=== PATIENT | female | born 1965 | race Two or more races ===

== ENCOUNTER 2024-07-20 04:51 | Emergency (ER) | payer BC, OTHER ==
[~2024-07-20] VITALS: Ht 170.2 cm; Wt 88.7 kg
[2024-07-20] MEDS: methylPREDNISolone SOD SUCC 125 MG/2 ML VL IM ONE (05:24)
[2024-07-20] MEDS: KETOROLAC TROMETH 60MG/2ML VIAL IM ONE (05:24)
[2024-07-20] MEDS ORDERED: METH4PAK PO (05:27)
[2024-07-20] MEDS ORDERED: IBUP-1456 PO (05:27)
--- NOTE | 2024-07-20 05:29 | ED.PDOC ---
Musculoskeletal HPI Comments 58-year-old female presents to ER with complaints of right shoulder pain x3 days. Patient reports that she started experiencing right shoulder pain three days ago after she was taking down her blinds to wash them that got worse when she woke up this morning. Denies any trauma/falls. She rates her current pain a 7/10 to right shoulder and notes she took Aleve for her pain with slight relief. Patient presents to ER ambulatory on arrival, with steady gait, in mild distress. Denies shortness of breath, skin changes, chest pain, numbness/tingling, neck pain or any further symptoms/complaints Chief Complaint: Upper Extremity Time Seen by MD: 05:05 Primary Care Provider: UNKNOWN Reviewed Notes: Nurses Notes, Medications, Allergies Allergies: Coded Allergies: NO KNOWN ALLERGIES (Unverified , 07/20/24) Home Meds Discontinued Scripts Ibuprofen (Ibuprofen) 800 Mg Tab, 1 TAB PO TID PRN, #30 TAB 0 Refills Prov:REMEDIOS AVILA 07/20/24 Methylprednisolone (Medrol Dosepak) 4 Mg Simon, 4 MG PO UD, #21 TAB 0 Refills UAD Prov:REMEDIOS AVILA 07/20/24 Information Source: Patient Mode of Arrival: Ambulatory Past Medical History PAST MEDICAL HISTORY: HTN Surgical History: Denies all surgeries Family History Family History: Unknown Social History Smoker: Non-Smoker Alcohol: Denies ETOH Use Drugs: Denies Drug Use Lives In: Home Constitutional: denies: chills, diaphoresis, fatigue, fever, malaise, sweats, weakness, others EENTM: denies: blurred vision, double vision, ear bleeding, ear discharge, ear drainage, ear pain, ear ringing, eye pain, eye redness, hearing loss, mouth pain, mouth swelling, nasal discharge, nose bleeding, nose congestion, nose pain , photophobia, tearing, throat pain, throat swelling, voice changes, others Respiratory: denies: cough, hemoptysis, orthopnea, SOB at rest, shortness of breath, SOB with excertion, stridor, wheezing, others Cardiovascular: denies: chest pain, dizzy spells, diaphoresis, Dyspnea on exertion, edema, irregular heart beat, left arm pain, lightheadedness, palpitations, PND, syncope, others Gastrointestinal: denies: abdomen distended, abdominal pain, blood streaked bowels, constipated, diarrhea, dysphagia, difficulty swallowing, hematemesis, melena, nausea, poor appetite, poor fluid intake, rectal bleeding, rectal pain, vomiting, others Genitourinary: denies: abnormal vagina bleeding, burning, dyspareunia, dysuria, flank pain, frequency, hematuria, incontinence, pain, , vagina discharge, urgency, others Neurological: denies: dizziness, fainting, headache, left sided numbness, left sided weakness, numbness, paresthesia, pre-existing deficit, right sided numbness, right sided weakness, seizure, speech problems, tingling, tremors, weakness, others Musculoskeletal: reports: others (As stated in HPI) Integumetry: denies: bruises, change in color, change in hair/nails, dryness, laceration, lesions, lumps, rash, wounds, others Allergic/Immunocompromised: denies: Difficulty Healing, Frequent Infections, Hives, Itching, others Hematologic/Lymphatic: denies: anemia, blood clots, easy bleeding, easy bruising, swollen glands, others Endocrine: denies: excessive hunger, excessive sweating, excessive thirst, excessive urination, flushing, intolerance to cold, intolerance to heat, unexplained weight gain, unexplained weight loss, others Psychiatric: denies: anxiety, bipolar disorder, depression, hopeless, panic disorder, schizophrenia, sleepless, suicidal, others Physical Exam General Appearance: Mild Distress (due to right shoulder pain), Obese HEENT: PERRL/EOMI Neck: Full Range of Motion, Non-Tender, Normal Respiratory: Chest Non-Tender, Lungs Clear, No Accessory Muscle Use, No Respiratory Distress, Normal Breath Sounds Cardiovascular: No Murmur, No Gallop, Regular Rate/Rhythm Breast Exam: Deferred Gastrointestinal: NOT DONE Genitalia: Deferred Pelvic: Deferred Rectal: Deferred Extremities: Normal capillary refill Musculoskeletal : Extremity Location: Shoulder (TTP to right proximal hurmerus with + deformity. Pulses intact) Neurologic: Alert, No Motor Deficits, No Sensory Deficits Cerebellar Function: Normal Reflexes: Normal Skin: Dry, Normal Color, Warm Peripheral Pulses: 2+ carotid (R), 2+ carotid (L), 2+ Radial (R), 2+ Radial (L), 2+ Brachial (R), 2+ Brachial (L) Lymphatic: No Adenopathy Was a procedure done? Was a procedure done?: Yes Sedation Sedation?: No, Yes Informed consent obtained: Yes Sedation start time: 07:47 Sedation end time: 07:50 Sedation total time: 3 minutes Arterial Puncture Informed consent obtained: Yes Risks/benefits/alt described: Yes Reduction Indication: Dislocation (Shoulder right) Intra-articular anesthetic carlee: No Post-reduction x-ray show: Reduction, Good Alignment Informed consent obtained: Yes Risks/benefits/alt described: Yes Differential Diagnosis EXT Differential Diagnosis: Fracture, Dislocation, Neurovascular injury X-Ray, Labs, Meds, VS Vital Signs Date Time Temp Pulse Resp B/P (MAP) Pulse Ox O2 Delivery O2 Flow Rate FiO2 07/20/24 07:30 Room Air* 0 21 07/20/24 07:30 98.0 67 13 163/87 (112) 99 98.0 07/20/24 06:30 18 98 Room Air* 0 21 07/20/24 06:24 99.0 90 15 154/85 (108) 95 99.0 07/20/24 05:12 16 07/20/24 05:00 97.8 100 20 157/104 (121) 98 97.8 Current Medications Medications (Trade) Dose Ordered Sig/Rich Route Start Time Stop Time Status Last Admin Ketorolac Tromethamine (Toradol Injection) 60 mg ONCE ONCE IM 07/20/24 05:15 07/20/24 05:16 DC 07/20/24 05:24 Methylprednisolone Sodium Succinate (Solu Medrol) 125 mg ONCE ONCE IM 07/20/24 05:15 07/20/24 05:16 DC 07/20/24 05:24 Etomidate 20 mg ONCE ONCE IV 07/20/24 06:45 07/20/24 06:46 DC 07/20/24 07:47 Toradol 60 mg IM ordered Solu-Medrol 125 mg IM ordered Patient provided right arm sling and neurovascularly intact Right shoulder x-ray reviewed : + dislocation Patient endorsed to Dr. Barnett who states he will inform Dr. Pillai of + right shoulder dislocation at shift change At this time, we were able to manipulate the shoulder without any difficulty Repeat x-ray of the right shoulder shows: There is proper reduction at this time. The patient was placed in a shoulder immobilizer and is being discharged The patient will follow up with the primary care doctor The patient will return to the emergency department's condition worsens Images Reviewed?: Images reviewed and evaluated by me Time of 1ST Reevaluation: 05:22 Reevaluation 1ST: N/A Patient Education/Counseling: Diagnosis, Treatment, Prognosis, Need For Follow Up Family Education/Counseling: No Family Present Change of Shift?: Yes (Endorsed patient to Dr. Barnett) Departure 1 Departure Time of Disposition: 05:52 Impression: Primary Impression: Dislocation of shoulder, right, closed Qualified Codes: S43.004A - Unspecified dislocation of right shoulder joint, initial encounter Disposition: HOME / SELF CARE / HOMELESS Condition: Fair Discharged With: Self Critical Care Note Critical Care Time?: No Stability Stability form required: No Heart Score Heart Score: Heart Score Response (Comments) Value History N/A 0 EKG N/A 0 Age N/A 0 Risk Factors N/A 0 Troponin N/A 0 Total 0 REMEDIOS AVILA Jul 20, 2024 05:28 JERRY PILLAI MD Jul 20, 2024 06:20
--- NOTE | 2024-07-20 06:04 | DVH ---
EXAM: XR Right Shoulder Complete, 2 or More Views CLINICAL INDICATION: right shoulder pain TECHNIQUE: Two or more views of the right shoulder. COMPARISON: None FINDINGS: BONES/JOINTS: Anterior-inferior dislocation of the humeral head from the glenohumeral joint. No ac [place] fracture. SOFT TISSUES: Unremarkable. OTHER FINDINGS: . IMPRESSION: Anterior-inferior dislocation of the humeral head from the glenohumeral joint.
[2024-07-20 06:30] VITALS: RESP 18; O2SAT 98
--- NOTE | 2024-07-20 06:52 | DVH ---
EXAM: XY R SHOULDER 2+ VIEW XRAY HISTORY: post reduction COMPARISON: XY R SHOULDER 2+ VIEW XRAY on DOS: 07/20/24 TECHNIQUE: Single frontal view of the right shoulder. FINDINGS: There is inferior positioning of the humeral head relative to the glenoid consistent with persistent dislocation. Hill-Sachs lesion in the lateral humeral head. IMPRESSION: 1. Persistent glenohumeral joint dislocation.
[2024-07-20 07:30] VITALS: BP 163/87; PULSE 67; RESP 13; TEMP 98; O2SAT 99
[2024-07-20] MEDS: ETOMIDATE (2MG/ML) 20ML VIAL IV ONE (07:47)
--- NOTE | 2024-07-20 08:43 | DVH ---
CLINICAL INDICATION: POST REDUCTION TECHNIQUE: 2 radiographic views of the right shoulder were obtained. Comparison: XY R SHOULDER 2+ VIEW XRAY on DOS: 07/20/24, XY R SHOULDER 2+ VIEW XRAY on DOS: 07/20/24 FINDINGS/IMPRESSION: Improved alignment of the right glenohumeral joint. Right Hill-Sachs fracture is visualized.
== END 2024-07-20 09:08 | disposition home or self-care (01) ==
LOC: ER 04:51
DX: S43.004A Unspecified dislocation of right shoulder joint, initial encounter (principal); I10 Essential (primary) hypertension; Z79.899 Other long term (current) drug therapy; X58.XXXA Exposure to other specified factors, initial encounter; Y93.89 Activity, other specified; Y92.89 Other specified places as the place of occurrence of the external cause; Y99.8 Other external cause status
CPT/HCPCS: 23650; 73020; 73030; 96372; 99285; J1885; J2919